=== PATIENT | female | born 1970 | race Caucasian/White ===

== ENCOUNTER 2018-04-22 16:46 | Observation (INO) ==
--- NOTE | 2018-04-22 16:58 | Emergency Department Note ---
Disposition Clinical Impression: Facial paresthesia, Left face and left arm tingling, Facial droop Disposition: Admitted As Inpatient Condition: Good Referrals: Yesenia Nam, DYNAMOMETER TESTER ENGINE [Primary Care Provider] - Forms: ED Satisfaction Letter Time of Disposition: 17:54 Neuro HPI - General Chief Complaint: ED Neuro Symptoms/Deficit Stated Complaint: N/V Facial N/T Time Seen by Provider: 04/22/18 16:51 Source: patient Mode of arrival: ambulatory Limitations: no limitations Nursing Notes Reviewed: Yes Vital Signs Reviewed: Yes - History of Present Illness HPI Narrative: Patient is a 48-year-old female with PMHX of GERD, depression who presents today due to left-sided facial drooping, tingling in her left face and left upper extremity. She states that she started feeling nauseous around 11 and. She had a few episodes of nausea and vomiting. She states that this subsided and she came to work. Around 1 PM, she started to feel "off". She started having sensation of left-sided facial drooping, drooping of her mouth and eye, tingling in her left cheek and left hand. Denies any other numbness, tingling, weakness, chest pain, shortness of breath, fevers, abdominal pain, diarrhea, dysuria, hematuria. Denies any previous history of stroke, OK, any sent placement, CAD. Not on any blood thinners. She says that around 3:04pm, she was standing at the time clock to punch and and says that she lost time. She did not lose consciousness but does not remember a short period of time. When she came to, she was still standing at the time clock and could not remember what she was doing. She has felt mildly confused since. Continues to have facial and arm symptoms listed above. - Related Data Home Medications: Home Medications Medication Instructions Recorded Confirmed Escitalopram [Lexapro] 20 mg PO HS 01/25/17 01/25/17 Estradiol 0.5 mg PO HS 01/25/17 01/25/17 Topiramate [Topamax] 75 mg PO HS 01/25/17 01/25/17 Wellbutrin 02/12/18 Previous Rx's Medication Instructions Recorded Promethazine [Phenergan] 25 mg PO Q6HR PRN #10 tablet 02/12/18 raNITIdine HCl [Zantac] 150 mg PO BID #60 tablet 02/12/18 Allergies/Adverse Reactions: Allergies Allergy/AdvReac Type Severity Reaction Status Date / Time No Known Allergies Allergy Verified 02/12/18 18:26 All systems ED: reviewed and negative except as stated. Constitutional: Denies: fever Cardiovascular: Denies: chest pain Respiratory: Denies: cough, dyspnea Gastrointestinal: Reports: nausea, vomiting. Denies: abdominal pain, diarrhea, constipation Integumentary: Denies: rash Neurological: Reports: paresthesias, other (facial droop on left). Denies: headache, weakness, numbness Past Medical History - Past Medical History Attestation: Yes The following information was validated with the patient. Source: patient Medical history: Reports: non-contributory Surgical history: Reports: cholecystectomy, hysterectomy, KIMMIE/BSO Psychiatric history: Reports: no psych history - Social History Smoking Status: Never smoker Smokeless Tobacco Status: No Alcohol use: Reports: none Drug use: Reports: none Physical Exam - General Limitations: no limitations General appearance: alert, in no apparent distress - Head Head exam: atraumatic, normocephalic, normal inspection - Eye Eye exam: Present: PERRL, EOMI, other (mild droop of left cheek) - ENT ENT exam: normal oropharynx, mucous membranes moist, other (mild droop of left upper lip) - Neck Neck exam: Present: normal inspection, full ROM, trachea midline. Absent: tenderness, meningismus - Chest Chest inspection: Present: normal inspection, symmetric chest wall rise - Respiratory Respiratory exam: Present: normal lung sounds bilaterally - Cardiovascular Cardiovascular exam: Present: regular rate, normal rhythm, normal heart sounds - Abdominal Exam Abdominal exam: Present: soft, Non-Tender. Absent: tenderness, distention, guarding, rebound, rigidity - Extremities Exam Extremities exam: Present: normal inspection, full ROM. Absent: tenderness, pedal edema - Neurological Exam Neurological exam: Present: alert, oriented X3 - Expanded Neurological Exam Patient oriented to: Present: person, place, time Speech: Present: fluid speech Cranial nerves: EOM function (II, III, IV, ): Normal, facial sensation (V): Abnormal Left, facial palsy (VII): Abnormal Left, spinal accessory function (XI) : Normal, tongue deviation (XII): Normal Cerebellar function: finger to nose: Normal Motor strength - LUE: 5/5 Motor strength - RUE: 5/5 Motor strength - LLE: 5/5 Motor strength - RLE: 5/5 Sensory exam upper extremity: light touch: Normal Sensory exam lower extremity: light touch: Normal Coma Scale Eye Opening: Spontaneous Coma Scale Motor Response: Obeys Commands Coma Scale Verbal Response: Oriented Coma Scale Total: 15 - Psychiatric Psychiatric exam: Present: normal affect, normal mood - Skin Skin exam: Present: warm, dry, intact, normal color Course Course Narrative: NIH of 2 due to left cheek decreased sensation, mild droop of left upper lip and left eye, no forehead involvement. Also has sensation of tingling in left hand. 16:58 Stroke alert called. 17:25 [facility] called back, negative head CT. [facility]y has been paged. 17:[address] [facility] [address] Rosales has finished her evaluation. She discussed that she did not think patient was candidate for TPA at this time due to mild symptoms that are slightly improving. Patient agrees with this at this time. She recommended admission to [place] for further workup for stroke. Patient given aspirin and plantar admit for further MRI/MRA of the head and neck. EKG showed no acute ST changes. Pending troponin. Vital Signs Temperature 98.1 F 04/22/18 16:48 Pulse Rate 95 04/22/18 16:48 Respiratory Rate 20 04/22/18 16:48 Blood Pressure 116/79 04/22/18 16:48 O2 Sat by Pulse Oximetry 98 04/22/18 16:48 Temperature 98.1 F 04/22/18 16:58 Pulse Rate 75 04/22/18 17:53 Respiratory Rate 18 04/22/18 17:53 Blood Pressure 109/66 04/22/18 17:15 O2 Sat by Pulse Oximetry 94 04/22/18 17:53 Oxygen Delivery Oxygen Delivery Room Air Neuro Symptoms/Deficit - MDM Narrative Medical decision making narrative: NIH of 2 due to left cheek decreased sensation, mild droop of left upper lip and left eye, no forehead involvement. Also has sensation of tingling in left hand. 16:58 Stroke alert called. 17:25 [facility] called back, negative head CT. [facility] has been paged. 17:[address] [facility] [address] Rosales has finished her evaluation. She discussed that she did not think patient was candidate for TPA at this time due to mild symptoms that are slightly improving. Patient agrees with this at this time. She recommended admission to [place] for further workup for stroke. Patient given aspirin and plantar admit for further MRI/MRA of the head and neck. EKG showed no acute ST changes. Troponin negative. Chest x-ray negative. No major electrolyte abnormality. Head CT 04/22/18 16:58 IMPRESSION: No acute intracranial abnormality. No change from April 2014. Critical results were called by Dr. Leonidas Pisano MD to Marcusschuyler Leblanc on 04/22/2018 at 17:28. D/ / Leonidas Pisano MD / Leonidas Pisano MD Interpreting Provider: Leonidas Pisano MD Chest X-Ray 04/22/18 17:03 IMPRESSION: No acute findings. D/ / Mark Alegria / Mark Alegria Interpreting Provider: Mark Alegria - Medical Records Medical records reviewed: Yes I reviewed the patient's medical records. - Lab Data Lab results reviewed: Yes I reviewed the patient's lab results. Result diagrams: 04/22/18 17:00 04/22/18 17:00 Lab Results 04/22/18 04/22/18 04/22/18 Range/Units 17:00 17:00 17:00 WBC 14.6 H (4.3-11.1) K/mcL RBC 4.80 (3.82-4.97) M/mcL Hgb 15.4 (11.5-15.4) g/dL Hct 45.0 H (35.3-44.9) % MCV 93.8 (83.0-100.0) fL MCH 32.1 (28.0-33.3) pg MCHC 34.2 (31.6-35.5) g/dL RDW 12.6 (11.5-14.5) % Plt Count 255 (140-400) K/mcL MPV 10.8 (9.4-12.4) fL Immature Gran % 0.3 (0-4) % Seg Neutrophils % 86.1 % Lymphocytes % 6.5 % Monocytes % 5.8 % Eosinophils % 1.0 % Basophils % 0.3 % Neutrophils # 12.5 H (1.6-8.9) K/mcL Lymphocytes # 1.0 (0.6-4.6) K/mcL Monocytes # 0.9 (0.0-1.3) K/mcL Eosinophils # 0.1 (0.0-0.6) K/mcL Basophils # 0.1 (0.0-0.2) K/mcL PT 11.4 (9.4-12.1) Seconds INR 1.0 APTT 31.1 (26.0-36.0) Seconds Sodium 137 (136-145) mEq/L Potassium 3.7 (3.5-5.1) mEq/L Chloride 109 H (98-107) mEq/L Carbon Dioxide 20 L (23-29) mEq/L BUN 18 (6-20) mg/dL Creatinine 0.74 (0.60-1.20) mg/dL Est GFR ( Amer) > 60 (> 60) Est GFR (Non-Af Amer) > 60 (> 60) BUN/Creatinine Ratio 24 (6-26) Glucose 139 H (70-105) mg/dL Calculated Osmolality 288 (280-300) Calcium 9.4 (8.6-10.3) mg/dL Troponin I < 0.03 (< 0.04) ng/mL - Radiology Data Radiology results reviewed: Yes I reviewed the patient's radiology results. - EKG Data EKG attestation: Yes I reviewed and interpreted this EKG. EKG results narrative: 04/22/2018 at 17:01. Normal sinus rhythm. Rate 84. WI 186. QRS 128. QTC 416. Normal axis. No acute ST elevation or depression. Bundle-branch block present in lead 3, V1 NIH Stroke Scale - Level of Consciousness LOC: Alert - LOC Questions LOC Questions: Answers both correctly - LOC Commands LOC Commands: Performs both correctly - Best Gaze Best Gaze: Normal - Visual Visual: No visual loss - Facial Palsy Facial Palsy: Minor asymmetry on smiling, flattened nasolabial fold - Motor Arms Motor Arm-Left: No drift for 10 seconds Motor Arm-Right: No drift for 10 seconds - Motor Legs Motor Leg-Left: No drift for 5 seconds Motor Leg-Right: No drift for 5 seconds - Limb Ataxia Limb Ataxia: Absent of affected limb too weak to perform exam - Sensory Sensory: Mild to moderate loss, "not as sharp" (left cheek) - Best Language Best Language: No aphasia - Dysarthria Dysarthria: Normal - Extinction and Inattention Extinction and Inattention: Normal - NIHSS Total Score NIHSS Total Score: 2 TPA Checklist - LKW: 3-4.5 hrs Add. Warnings/Precautions Patient/family understanding: The patient/family members have been counseled and understood the risk, benefit , and alternatives of treatment. Damon - Damon Situation: Demographics, MOA Background: Presenting Complaint, Relevant PMH, Meds, & Allergies Assessment: Vital Signs, Course and respsone to treatment, Exam Concerns, Patient/Family Expectation, Pertinant Lab Results Recommendation: Barrier(s) to disposition, Recommendation based on pending studies, treatments, or consults Damon Report Given to: Dr. Alissa Jose Repor Time: 18:05
[2018-04-22 17:25] LABS: Basophils # 0.1 K/mcL (0.0-0.2); Basophils % 0.3 %; Eosinophils # 0.1 K/mcL (0.0-0.6); Hemoglobin 15.4 g/dL (11.5-15.4); Immature Granulocytes % 0.3 % (0-4); Lymphocytes % 6.5 %; Mean Corpuscular HGB Conc 34.2 g/dL (31.6-35.5); Mean Corpuscular Hemoglobin 32.1 pg (28.0-33.3); Mean Corpuscular Volume 93.8 fL (83.0-100.0); Mean Platelet Volume 10.8 fL (9.4-12.4); Monocytes # 0.9 K/mcL (0.0-1.3); Monocytes % 5.8 %; Neutrophils # 12.5 K/mcL (1.6-8.9); Platelet Count 255 K/mcL (140-400); Red Cell Distribution Width 12.6 % (11.5-14.5); Segmented Neutrophils % 86.1 %
[2018-04-22 17:32] LABS: Prothrombin Time 11.4 Seconds (9.4-12.1)
[2018-04-22 17:35] LABS: Activated Partial Thrombo Time 31.1 Seconds (26.0-36.0)
[2018-04-22 17:51] LABS: BUN/Creatinine Ratio 24 (6-26); Blood Urea Nitrogen 18 mg/dL (6-20); Calcium 9.4 mg/dL (8.6-10.3); Carbon Dioxide 20 mEq/L (23-29); Chloride 109 mEq/L (98-107); Glucose 139 mg/dL (70-105); Osmolality,Calculated 288 (280-300); Potassium 3.7 mEq/L (3.5-5.1); Sodium 137 mEq/L (136-145); eGFR For Non-African Americans > 60 (> 60)
[2018-04-22] MEDS: Aspirin 325 MG TABLET PO ONE (17:51)
[2018-04-22 17:52] LABS: Troponin I < 0.03 ng/mL (< 0.04)
--- NOTE | 2018-04-22 17:53 | Emergency Department Note ---
Disposition Clinical Impression: Facial paresthesia Disposition: Admitted As Inpatient Condition: Fair Referrals: Yesenia Nam CNP [Primary Care Provider] - Forms: ED Satisfaction Letter Neuro HPI - General Chief Complaint: ED Neuro Symptoms/Deficit Stated Complaint: N/V Facial N/T Time Seen by Provider: 04/22/18 16:51 Source: patient Mode of arrival: ambulatory Limitations: no limitations Nursing Notes Reviewed: Yes Vital Signs Reviewed: Yes - Related Data Home Medications: Home Medications Medication Instructions Recorded Confirmed Escitalopram [Lexapro] 20 mg PO HS 01/25/17 01/25/17 Estradiol 0.5 mg PO HS 01/25/17 01/25/17 Topiramate [Topamax] 75 mg PO HS 01/25/17 01/25/17 Wellbutrin 02/12/18 Previous Rx's Medication Instructions Recorded Promethazine [Phenergan] 25 mg PO Q6HR PRN #10 tablet 02/12/18 raNITIdine HCl [Zantac] 150 mg PO BID #60 tablet 02/12/18 Allergies/Adverse Reactions: Allergies Allergy/AdvReac Type Severity Reaction Status Date / Time No Known Allergies Allergy Verified 02/12/18 18:26 Constitutional: Denies: fever Cardiovascular: Denies: chest pain Respiratory: Denies: cough, dyspnea Gastrointestinal: Reports: nausea, vomiting. Denies: abdominal pain, diarrhea, constipation Integumentary: Denies: rash Neurological: Reports: paresthesias, other (facial droop on left). Denies: headache, weakness, numbness Past Medical History - Past Medical History Medical history: Reports: non-contributory Surgical history: Reports: cholecystectomy, hysterectomy, KIMMIE/BSO Psychiatric history: Reports: no psych history - Social History Smoking Status: Never smoker Smokeless Tobacco Status: No Alcohol use: Reports: none Drug use: Reports: none Physical Exam - General Limitations: no limitations General appearance: alert, in no apparent distress Course Vital Signs Temperature 98.1 F 04/22/18 16:48 Pulse Rate 95 04/22/18 16:48 Respiratory Rate 20 04/22/18 16:48 Blood Pressure 116/79 04/22/18 16:48 O2 Sat by Pulse Oximetry 98 04/22/18 16:48 Temperature 98.1 F 04/22/18 16:58 Pulse Rate 78 04/22/18 17:15 Respiratory Rate 18 04/22/18 17:15 Blood Pressure 109/66 04/22/18 17:15 O2 Sat by Pulse Oximetry 93 04/22/18 17:15 Oxygen Delivery Oxygen Delivery Room Air Neuro Symptoms/Deficit - Lab Data Result diagrams: 04/22/18 17:00 Lab Results 04/22/18 04/22/18 Range/Units 17:00 17:00 WBC 14.6 H (4.3-11.1) K/mcL RBC 4.80 (3.82-4.97) M/mcL Hgb 15.4 (11.5-15.4) g/dL Hct 45.0 H (35.3-44.9) % MCV 93.8 (83.0-100.0) fL MCH 32.1 (28.0-33.3) pg MCHC 34.2 (31.6-35.5) g/dL RDW 12.6 (11.5-14.5) % Plt Count 255 (140-400) K/mcL MPV 10.8 (9.4-12.4) fL Immature Gran % 0.3 (0-4) % Seg Neutrophils % 86.1 % Lymphocytes % 6.5 % Monocytes % 5.8 % Eosinophils % 1.0 % Basophils % 0.3 % Neutrophils # 12.5 H (1.6-8.9) K/mcL Lymphocytes # 1.0 (0.6-4.6) K/mcL Monocytes # 0.9 (0.0-1.3) K/mcL Eosinophils # 0.1 (0.0-0.6) K/mcL Basophils # 0.1 (0.0-0.2) K/mcL PT 11.4 (9.4-12.1) Seconds INR 1.0 APTT 31.1 (26.0-36.0) Seconds TPA Checklist - LKW: 3-4.5 hrs Add. Warnings/Precautions Patient/family understanding: The patient/family members have been counseled and understood the risk, benefit , and alternatives of treatment. Attestation Statement - Attestation Attestation: I, Shalom Crowell, examined this patient and my medical decision-making was reviewed with the [employer] TE[employer]ER/PA/Advanced Practice Nurse/Resident Physician. I agree with the documented findings, disposition and treatment plan as described except to the extent set forth below. 48-year-old female presents emergency Department with concerns of numbness and tingling to the left lower face with mild left facial droop. Patient states her last known normal was about 3 hours prior to arrival in the emergency department. On exam she has a mild left facial droop and paresthesias to the left lower face. There is sparing of the forehead noted on exam. She has mild tingling to the left hand but there is no other focal neurologic deficit. Patient denies recent trauma. No recent changes in her medications. We initiated a stroke alert after the initial evaluation. CT of the head was negative for acute fracture or intracranial hemorrhage. Patient was evaluated by [facility] neurology who agreed the patient was not a candidate for TPA. Patient comfortable with the plan for admission to the hospital for further care and evaluation.
[2018-04-22 18:27] LABS: Bilirubin,Urine Negative (Negative); Blood,Urine Negative (Negative); Clarity,Urine Clear (Clear); Color,Urine Yellow (Yellow); Glucose,Urine (UA) Normal (Normal); Ketones,Urine Negative (Negative); Leukocyte Esterase,Urine Negative (Negative); Nitrite,Urine Negative (Negative); PH,Urine 6.5 pH Units (5.0-8.0); Protein,Urine Negative (Neg-Trace); Specific Gravity,Urine 1.025 (1.010-1.025); Urobilinogen,Urine Normal (Normal)
--- NOTE | 2018-04-22 18:44 | Internal Med History&Physical ---
Date of Encounter: 04/22/18 Time of Encounter: 18:42 Internal Medicine - H&P: HPI Chief complaint: left sided facial paresthesia Admitted From: Home Plans for Post Hospital Care: Home History of present illness: Ms. Hubbard is a 48 year old female with history of PTSD presented to the ED with complaint of left-sided paresthesia. 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 She was at her usual state of health the day before admission and worked her shift. She went home and woke up not feeling like herself, she reports confusion and "grogginess". She had one episode of bilious vomiting at home, denies hematemesis. No else in the family is experiencing similar symptoms. At 3 PM she came to work, did not feel like herself soon after she developed numbness and tingling of the left side of her face, and left upper extremity. she denies alleviating or exacerbating factors to her symptoms . she denies loss of function of her extremities / paralysis, head trauma, loss of balance, falls, recent URI, neck stiffness. other than left sided numbness and tingling she complains of foul smelling urine , denies frequeny or Dysuria. He has never had symptoms like this before so she consulted with one of the nurses on the floor and was transported to the emergency department for further evaluation. While in the ED NIH score was 2, stroke alert was activated, CT head did not show any acute intracranial hemorrhage. [facility] was consulted but no TPA was given since her symptoms had improved and nearly resolved. She was endorsed for admission for further evaluation of her symptoms. denies chest pain, fver, chills, heat or cold intolerance. Past Med Surg Social Fam HX - Past Medical History Medical history: non-contributory Psychiatric history: no psych history - Past Surgical History Surgical History: cholecystectomy, hysterectomy, KIMMIE/BSO Additional surgical history: hysterectomy. tonsils. tubal. R CTR. Breast reduction. gallbladder. left knee. left foot - Social History Smoking Status: Never smoker Smokeless Tobacco Status: No Alcohol use: none Drug use: none - Family History Mother Hx Family Cardiac Disorders: Yes Hx Family GI Disorders: Yes Hx Family Endocrine Disorder: Yes Father Living Status: Internal Medicine - H&P: Meds Escitalopram [Lexapro] 20 mg PO HS 01/25/17 [History] Estradiol 0.5 mg PO HS 01/25/17 [History] Topiramate [Topamax] 75 mg PO HS 01/25/17 [History] Promethazine [Phenergan] 25 mg PO Q6HR PRN #10 tablet 02/12/18 [Rx] Wellbutrin 02/12/18 [History] raNITIdine HCl [Zantac] 150 mg PO BID #60 tablet 02/12/18 [Rx] 3 Allergy/AdvReac Type Severity Reaction Status Date / Time No Known Allergies Allergy Verified 02/12/18 18:26 All Systems PM: review of systems was performed and is negative for pertinent findings except as documented above in the HPI. - Constitutional Vitals: Temp Pulse Resp BP Pulse Ox 98 F 75 18 133/83 96 04/22/18 18:25 04/22/18 18:25 04/22/18 18:25 04/22/18 18:25 04/22/18 18:24 - Other Additional findings: General: Patient is alert, oriented, no acute distress, obese Head: atraumatic, normocephalic, Eye: normal appearance, PERRL, no scleral icterus, no conjunctival injection ENT: mucous membranes moist, normal external ear exam Neck: normal inspection, trachea midline, full ROM, no carotid bruits Chest: normal inspection, symmetric chest rise Respiratory: Good respiratory effort. Bilateral breath sounds are clear without wheezing, crackles, or rhonchi. Cardiovascular: Regular rate and rhythm. s1 and s2 No clicks, rubs, gallops, or murmors. Abdomen: Bowel sounds present normoactive x-4 quadrants. Abdomen is soft, nondistended. No guarding or rebound. No organomegaly noted, obese musculoskeletal: Spontaneously moving all extremities. no edema, no calf tenderness Skin: warm, dry, intact. Neuro: Alert and oriented x4. Sensation light touch intact. Cranial nerves 2- 12 is intact. 5/5 strength in all extremity, speech is comprehendible, gait is steady, no pronator drift, Not aphasic,, rapid hand movements intact, finger- to-nose intact, no nystagmus or facial droop Psych: Patient's affect is normal Internal Med - H&P Results - Labs CBC & Chem 7: 04/22/18 17:00 04/22/18 17:00 Labs: Urine 04/22/18 Range/Units 18:15 Urine Color Yellow (Yellow) Urine Clarity Clear (Clear) Urine pH 6.5 (5.0-8.0) pH Units Ur Specific Stephenson 1.025 (1.010-1.025) Urine Protein Negative (Neg-Trace) mg/dL Urine Glucose (UA) Normal (Normal) mg/dL - Assessment and plan (1) Facial paresthesia Current Visit: Yes Status: Acute Assessment and plan: ?TIA R/o stroke NIH 2 on admission- [facility] called No TPA was given ASA 325 mg in the ED ASA 81 mg qday lipitor 80 QhS neurology consult MRI head carotid doppler TTE lipid panel, A1c, TSH follow AM labs UA sent will follow Utox neuro checks as per protocol tele monitoring fall precautions PT/OT gentle hydration with NS at 60 cc per hour (2) PTSD (post-traumatic stress disorder) Current Visit: Yes Status: Acute Assessment and plan: continue home medications if not CI (3) Leukocytosis, unspecified Current Visit: Yes Status: Acute Assessment and plan: has generalized body aches and vomited once at home ? viral gastroenteritis vs reactive from TIA will continue to monitor vitals UA sent will follow CXR - clear vitals stable and afebrile will monitor CBC will consider Abx if she developes fever >100.4 Qualifiers: Leukocytosis type: unspecified Qualified Code(s): D72.829 - Elevated white blood cell count, unspecified (4) DVT prophylaxis Current Visit: No Status: Acute Assessment and plan: heparin 5000 units Q8H SC - Time Spent With Patient Total time spent is greater than 50% in coordination of care (as documented) at patient's floor/unit and/or counseling patient:
[2018-04-22] MEDS: *HR* Heparin 5,000 UNIT/ML VIAL SQ SCH (22:11)
[2018-04-22] MEDS: 0.9 % Sodium Chloride 1,000 ML IVC SCH (22:12)
[2018-04-22] MEDS: Melatonin 3 MG TABLET PO SCH (23:22)
[2018-04-22] MEDS: Acetaminophen 325 MG TABLET PO PRN (23:22)
[2018-04-23 04:39] LABS: Basophils # 0.1 K/mcL (0.0-0.2); Basophils % 0.8 %; Eosinophils # 0.3 K/mcL (0.0-0.6); Eosinophils % 4.3 %; Immature Granulocytes % 0.3 % (0-4); Lymphocytes # 1.9 K/mcL (0.6-4.6); Lymphocytes % 30.8 %; Mean Corpuscular HGB Conc 33.5 g/dL (31.6-35.5); Mean Corpuscular Hemoglobin 31.5 pg (28.0-33.3); Mean Corpuscular Volume 94.1 fL (83.0-100.0); Mean Platelet Volume 11.1 fL (9.4-12.4); Monocytes # 0.5 K/mcL (0.0-1.3); Monocytes % 8.8 %; Neutrophils # 3.3 K/mcL (1.6-8.9); Nucleated Red Blood Cells 0.3 /100 WBC (0); Platelet Count 216 K/mcL (140-400); Red Blood Count 4.25 M/mcL (3.82-4.97); Red Cell Distribution Width 12.7 % (11.5-14.5)
[2018-04-23 04:41] LABS: INR 1.1; Prothrombin Time 12.2 Seconds (9.4-12.1)
[2018-04-23 04:42] LABS: Hemoglobin 13.4 g/dL (11.5-15.4)
[2018-04-23 04:55] LABS: Magnesium 2.1 mg/dL (1.6-2.6); Phosphorous 2.3 mg/dL (2.7-4.5)
[2018-04-23 05:03] LABS: BUN/Creatinine Ratio 23 (6-26); Blood Urea Nitrogen 13 mg/dL (6-20); Calcium 8.9 mg/dL (8.6-10.3); Carbon Dioxide 21 mEq/L (23-29); Chloride 111 mEq/L (98-107); Cholesterol 158 mg/dL (< 200); Glucose 95 mg/dL (70-105); HDL Cholesterol 40 mg/dL (40-59); LDL Cholesterol,Calculated 95 mg/dL (0-99); Osmolality,Calculated 286 (280-300); Potassium 3.4 mEq/L (3.5-5.1); Sodium 138 mEq/L (136-145); Triglycerides 114 mg/dL (< 150); eGFR For Non-African Americans > 60 (> 60)
[2018-04-23 05:11] LABS: Thyroid Stimulating Hormone 0.913 mcIU/mL (0.340-5.600)
[2018-04-23] MEDS: *HR* Heparin 5,000 UNIT/ML VIAL SQ SCH ×3 (05:35→20:48)
[2018-04-23 06:33] LABS: Estimated Average Glucose 105 mg/dl; Hemoglobin A1C 5.3 %
[2018-04-23] MEDS: Aspirin Enteric Coated 81 MG Tablet PO SCH (08:13)
[2018-04-23] MEDS: Acetaminophen 325 MG TABLET PO PRN ×2 (08:13→20:50)
[2018-04-23 08:54] LABS: Amphetamine Screen,Urine Negative ng/mL (Cutoff=1000); Barbiturate Screen,Urine Negative ng/mL (Cutoff=200); Benzodiazepines Screen,Urine Negative ng/mL (Cutoff=200); Cannabinoid Screen,Urine Negative ng/mL (Cutoff = 50); Cocaine Screen,Urine Negative ng/mL (Cutoff= 300); Opiate Screen,Urine Negative ng/mL (Cutoff=300); Phencyclidine Screen,Urine Negative ng/mL (Cutoff=25)
--- NOTE | 2018-04-23 09:51 | Internal Med Progress Note ---
Date of Encounter: 04/23/18 Time of Encounter: 09:47 - Assessment and plan (1) Facial paresthesia Current Visit: Yes Status: Acute Assessment and plan: Patient reports yesterday she had onset of left facial numbness, tingling, drooping Facial drooping has resolved. She still feels her left face is "heavy" Neuro exam nonfocal, nonlateralizing CT head, MRI head negative. Awaiting echocardiogram and bilateral carotid Dopplers Patient is able to ambulate independently. She is tolerating her diet and denies dysphasia Awaiting neuro consult Patient's lipid panel is within normal limits. A1c 5.3 Troponin 0.03 We will continue patient on aspirin, statin (2) Leukocytosis, unspecified Current Visit: Yes Status: Acute Assessment and plan: Unclear why patient had a leukocytosis Predominantly neutrophilic She does not have tachypnea, tachycardia, fever She reports that yesterday she woke up with nausea and had 1 episode of yellow nonbloody vomiting. Reports she ate spaghetti the day before with her family and nobody else is sick. She reports no sick contacts She denies any tick bites Currently leukocytosis resolved after receiving IV fluids. Urinalysis negative Urine tox negative Chest x-ray negative Qualifiers: Leukocytosis type: unspecified Qualified Code(s): D72.829 - Elevated white blood cell count, unspecified (3) DVT prophylaxis Current Visit: Yes Status: Acute Assessment and plan: heparin 5000 units Q8H SC (4) PTSD (post-traumatic stress disorder) Current Visit: Yes Status: Acute Assessment and plan: continue home medications - Time Spent With Patient Total time spent is greater than 50% in coordination of care (as documented) at patient's floor/unit and/or counseling patient: - Subjective Interval history: Patient admitted for left facial numbness, tingling, drooping. She is currently undergoing neurological workup. She reports that the drooping has resolved but she still felt feels a heaviness on the left side of the face. She denies any unilateral weakness, dizziness, blurry vision. She reports a headache that is located bilateral occipital and frontal and throbbing. She is able to ambulate independently. - Constitutional Vitals: Temp Pulse Resp BP Pulse Ox 98.2 F 55 16 102/66 96 04/23/18 06:33 04/23/18 06:33 04/23/18 06:33 04/23/18 06:33 04/23/18 06:33 - Other Additional findings: General: Pleasant without distress HEENT: Head atraumatic, normocephalic, EOMI, PERRL, neck nontender to palpation , absent lymphadenopathy, Moist Mucous Membranes, Heart: Regular rate and rhythm with no murmur Lungs: Clear to auscultation bilaterally Abdomen: Soft nontender, nondistended positive bowel sounds Skin: warm and dry, absent rash Extremities: Absent pedal edema, Neuro: Cranial nerves II through XII intact, UE and LE sensation equal bilaterally, UE and LEstrength 5/5, alert oriented 3, Heel to gabriel intact, finger to nose intact, b/l plantar reflexes downwards Vascular: Pedal and radial pulses 2 out of 4 Internal Medicine: Result - Labs CBC & Chem 7: 04/23/18 03:55 04/23/18 03:55 Labs: Short CBC 04/23/18 Range/Units 03:55 WBC 6.0 D (4.3-11.1) K/mcL Hgb 13.4 D (11.5-15.4) g/dL Hct 40.0 (35.3-44.9) % Plt Count 216 (140-400) K/mcL Neutrophils # 3.3 (1.6-8.9) K/mcL BMP 04/23/18 03:55 Sodium 138 Potassium 3.4 L Chloride 111 H Carbon Dioxide 21 L BUN 13 Creatinine 0.56 L Glucose 95 Calcium 8.9 Urine 04/22/18 Range/Units 18:15 Urine Color Yellow (Yellow) Urine Clarity Clear (Clear) Urine pH 6.5 (5.0-8.0) pH Units Ur Specific [place] 1.025 (1.010-1.025) Urine Protein Negative (Neg-Trace) mg/dL Urine Glucose (UA) Normal (Normal) mg/dL - ABG Interpretation ABG results: PT/INR, D-dimer PT 12.2 Seconds (9.4-12.1) H 04/23/18 03:55 - Impressions Impressions Brain MRI 04/22/18 18:32 IMPRESSION: Unremarkable exam. No acute intracranial abnormality. D/ / Keith Hidalgo MD / Keith Hidalgo MD Interpreting Provider: Keith Hidalgo MD - VTE Documentation of Mechanical Device: Intermittent pneumatic compression device Consult Discharge Plan - Plan Referrals: Yesenia Nam, PRODUCTION STAFF WORKER [Primary Care Provider] -
--- NOTE | 2018-04-23 09:59 | Event Note ---
Date of Encounter: 04/23/18 Time of Encounter: 09:55 Patient was seen and examined. I agree with the progress note as written by the resident physician Patient is starting to feel better. Has a headache. Feels "fullness on left side of the face and around the left eye". Paresthesia is resolved. No weakness. One vomiting episode yesterday at home but none since. The patient was admitted for stroke workup and possible viral gastroenteritis. GEN: NAD CVS: RRR. S1, S2, No m/r/g RESP: CTAB ABD: Soft, NT, ND, +BS EXT: No edema. 2+ DP. No rashes NEURO: Nonfocal f/u on neurology recs CT head and MRI brain unremarkable c/w ASA 81 mg f/u on echo and carotids Seems to have had some dehydrational component and now improved after IV fluids Lipid panel noted A1c noted DVT ppx
[2018-04-23] MEDS ORDERED: Ketorolac 30 MG/ML VIAL IVP ONE (10:49)
[2018-04-23] MEDS ORDERED: Prochlorperazine 10 MG/2 ML VIAL IVP ONE (10:51)
[2018-04-23] MEDS: Melatonin 3 MG TABLET PO SCH (20:48)
[2018-04-24] MEDS: *HR* Heparin 5,000 UNIT/ML VIAL SQ SCH (06:40)
[2018-04-24] MEDS: 0.9 % Sodium Chloride 1,000 ML IVC SCH (06:41)
[2018-04-24] MEDS: Acetaminophen 325 MG TABLET PO PRN (07:51)
[2018-04-24] MEDS: Aspirin Enteric Coated 81 MG Tablet PO SCH (07:51)
--- NOTE | 2018-04-24 09:13 | Internal Med Progress Note ---
Date of Encounter: 04/24/18 Time of Encounter: 08:45 - Assessment and plan (1) Facial paresthesia Current Visit: Yes Status: Resolved Assessment and plan: Likely secondary to new onset migraine, other differentials include tension headache, cluster headache, bells palsy, orbital cellulitis Droop, heaviness, tingling have resolved. Patient still has facial puffiness on the left side, states it is improving. Neuro exam is equal bilaterally with no general or focal deficits. Lipids are WNL, A1c 5.3, troponins negative Head CT negative, MRI head negative, carotid U/S wnl, echo EF is 60% , mild LV diastolic dysfunction and mild mitral regurgitation. Patient independently performs ADLs, tolerates her diet and denies dysphagia. Continue current regimen of asa and statin for management. Neuro is consulted, awaiting recommendations. Check a B12, folate level. - Subjective Interval history: Demi Hubbard is a 48 y/o female with a PMH of GERD, Depression, PTSD who presented to [facility] on 04/22 for Left-sided facial droop, tingling in the Left- face and L-UE, and nausea. Today the patient states that the droop and facial heaviness have resolved. Her headache is resolving today with pain at a 1/10, located in the occiput region. No associated nausea, vomiting, flashers, floaters today. No vision or hearing concerns today. No nausea, vomiting. Left face feels puffy today, improving from yesterday. ROS General: denies fatigue, chills, fevers HEENT: denies hearing or vision changes. denies tinnitus. Denies metallic taste. CV: denies CP, SOB, Palpitations RESP: denies difficulty breathing, coughing, wheezing GI: Denies nausea, vomiting, diarrhea, constipaition, hematochezia, melena : denies hematuria MSK: full ROM Neuro: denies droop, tingling, loss of sensation, tremors. PSYCH: denies anxiety. positive for history of depression, chronic. - Constitutional Vitals: Temp Pulse Resp BP Pulse Ox 98.2 F 61 16 102/64 98 04/24/18 07:24 04/24/18 07:24 04/24/18 07:24 04/24/18 07:24 04/24/18 07:24 General appearance: Present: A&O X 3, pleasant, no acute distress, obese - Head Head exam: Present: atraumatic, normocephalic - Expanded Head Exam Head exam expanded: Absent: abrasion - Eye Eye exam: Present: EOMI, PERRL. Absent: nystagmus Additional comments: No swelling, erythema of eyelids. - Neck Neck exam general surgery: Present: full ROM. Absent: lymphadenopathy - Respiratory Respiratory exam: Present: CTAB. Absent: respiratory distress, wheezes - Cardiovascular Cardiovascular exam: Present: RRR. Absent: gallop, rubs - GI/Abdominal GI/Abdominal exam: Present: normal bowel sounds. Absent: hepatomegaly, rigid, splenomegaly - Extremities Exam Extremities exam: Present: full ROM - Neurological Exam Neurological exam: Present: alert, CN II-XII intact, normal gait, reflexes normal, strengths equal and symetr throughout - Expanded Neurological Exam Cerebellar function: finger to nose: Normal, heel to gabriel: Normal Neuro motor strength exam: LUE: 5, RUE: 5, LLE: 5, RLE: 5 DTR: patellar (L): 2+, patellar (R): 2+ - Psychiatric Psychiatric exam: Present: normal affect, normal mood - Skin Skin exam: Present: normal color Internal Medicine: Result - Labs CBC & Chem 7: 04/23/18 03:55 04/23/18 03:55 - ABG Interpretation ABG results: PT/INR, D-dimer PT 12.2 Seconds (9.4-12.1) H 04/23/18 03:55 - Impressions Impressions Echocardiogram 04/23/18 11:35 Impressions: LVEF 60%. Mild left ventricular diastolic dysfunction. Normal right ventricular structure and function. Mild mitral regurgitation. No pulmonary hypertension. No evidence of PFO with agitated saline contrast. Left Ventricular Wall Motion: Rest Echo Findings All wall segments showed normal motion. Findings: Study Quality * Technically adequate exam. ECG Findings * Normal sinus rhythm. Left Ventricle * LVEF 60%. * Normal LV chamber size, wall thickness and function. * Mild left ventricular diastolic dysfunction. Right Ventricle * Normal right ventricular structure and function. Left Atrium * Normal left atrial size. Right Atrium * Normal right atrial size. Aortic Valve * No aortic regurgitation. * No aortic stenosis. * Aortic valve not well visualized. Mitral Valve * Normal mitral valve structure. * No mitral stenosis. * Mild mitral regurgitation. Tricuspid Valve * Tricuspid valve not well visualized. * Trace tricuspid regurgitation. Pulmonic Valve * Pulmonic valve is not well visualized. * No pulmonic stenosis. * No pulmonic regurgitation. Pulmonary Artery * Pulmonary artery not well visualized. Aorta * Normally sized aortic root. Pericardium * There is no pericardial effusion present. Interatrial Septum * No evidence of PFO with agitated saline contrast. - VTE Documentation of Mechanical Device: Intermittent pneumatic compression device Consult Discharge Plan - Plan Referrals: Yesenia Nam CNP [Primary Care Provider] - 04/27/18 10:30 am
--- NOTE | 2018-04-24 11:09 | Discharge Summary ---
Date of Encounter: 04/24/18 - Discharge Diagnosis (1) Facial paresthesia Status: Resolved - Time Spent with Patient Total time spent providing and/or coordinating discharge services: - Discharge Medications Home Medications: Escitalopram [Lexapro] 20 mg PO HS 01/25/17 [History] Estradiol 0.5 mg PO HS 01/25/17 [History] Topiramate [Topamax] 75 mg PO HS 01/25/17 [History] BuPROPion XL (24 HR) [Wellbutrin XL] 150 mg PO QAM 04/22/18 [History] Melatonin [Melatin] 3 mg PO HS 04/22/18 [History] raNITIdine HCl [Zantac] 150 mg PO BID PRN 04/22/18 [History] Allergies/Adverse Reactions: 3 Allergy/AdvReac Type Severity Reaction Status Date / Time No Known Allergies Allergy Verified 02/12/18 18:26 Date of admission: 04/22/18 18:13 Primary care physician: Yesenia Nam CNP Consults: 04/22/18 18:32 Consult to Neurology [CONS] Routine Consulting Provider: Neu[facility] Reason for Consult: tia Call Completed: No Consult to Award Machine Operator [CONS] Routine Reason for SW Consult: tia - Constitutional Vitals: Temp Pulse Resp BP Pulse Ox 98.2 F 61 16 102/64 98 04/24/18 07:24 04/24/18 07:24 04/24/18 07:24 04/24/18 07:24 04/24/18 07:24 General appearance: Present: A&O X 3, pleasant, no acute distress, obese - Patient Status Condition: Good - Discharge Instructions Follow Up With: Yesenia Nam CNP [Primary Care Provider] - 04/27/18 10:30 am - VTE Documentation of Mechanical Device: Intermittent pneumatic compression device
[2018-04-24 11:13] VITALS: BP 114/64
--- NOTE | 2018-04-24 11:14 | Neurology - Consult Note ---
<William Nassar - Last Filed: 04/24/18 10:57> Date of Encounter: 04/24/18 Time of Encounter: 10:40 Assessment and Plan (1) Left face and left arm tingling Current Visit: Yes Status: Acute Symptoms have mostly resolved. Most likely associated with a migrainous phenomena. Will followup in office in 3-4 weeks and ok to ga Code(s): R20.2 - Paresthesia of skin SNOMED Code(s): 36264785, 455789550, 461449622 (2) Migraine without status migrainosus, not intractable Current Visit: Yes Status: Acute Occipital headache has since resolved. Most likely basilar migrainous phenomena with associated facial and L hand symptoms. She is currently taking toperimate and will continue at ga. Will add 2mg zanaflex at bedtime. Followup in office in 3-4 weeks. Qualifiers: Migraine type: without aura Qualified Code(s): G43.009 - Migraine without aura, not intractable, without status migrainosus Code(s): G43.909 - Migraine, unspecified, not intractable, without status migrainosus SNOMED Code(s): 76605583 History of Present Illness Chief complaint: Neuro consult for facial numbness/tingling HPI: Ms. Hubbard is a 48 year old female with PMH significant for PTSD and depression. Neurology has been consulted for new onset facial numbness/tingling and L hand tingling. She states 2 days ago she was getting ready for work and had 1 episode of bilious vomiting and shortly after started having a headache she describes as "intense, throbbing at the base of skull" without any visual aura. She additionally said she was having diaphoresis and loss of peripheral vision when her DICKENS began. A new feeling of "fullness" started on the L side of her face and when she went to work she told a nurse about her symptoms and was told she was having a L facial droop and taken to the ED. She has never had these symptoms previously. Today, she says her symptoms have improved. She complains of a slight pain in occipital region still but the DICKENS pain has mostly resolved. The pain is increased when looking upwards but side/side neck ROM does not elicit pain. The facial tingling and fullness has mostly resolved with some minor fullness feeling still present. She continues to have the tingling and fullness feeling of her L hand she locates to just her finger tips but not more proximal which is improving. She denied any presyncopal symptoms, chest pain, SOB, hx of migraines, eye pain/pressure, tearing, redness, diplopia, or additional loss of peripheral vision since first incident. Past Med Surg Social Fam HX - Past Medical History Medical history: non-contributory Psychiatric history: PTSD - Past Surgical History Surgical History: cholecystectomy, hysterectomy, orthopedic, other, KIMMIE/BSO Additional surgical history: hysterectomy. tonsils. tubal. R CTR. Breast reduction, bladder mesh. gallbladder. left knee. left foot - Social History Smoking Status: Former smoker Smokeless Tobacco Status: No Alcohol use: none Drug use: none - Family History Mother Hx Family Cardiac Disorders: Yes Hx Family GI Disorders: Yes Hx Family Endocrine Disorder: Yes Father Living Status: Hx Family Neurologic Disorders: Yes (Alzhymers, "mini-strokes") Medications and Allergies Escitalopram [Lexapro] 20 mg PO HS 01/25/17 [History] Estradiol 0.5 mg PO HS 01/25/17 [History] Topiramate [Topamax] 75 mg PO HS 01/25/17 [History] BuPROPion XL (24 HR) [Wellbutrin Xl] 150 mg PO QAM 04/22/18 [History] Melatonin [Melatin] 3 mg PO HS 04/22/18 [History] raNITIdine HCl [Zantac] 150 mg PO BID PRN 04/22/18 [History] Aspirin Enteric Coated [Aspirin EC] 81 mg PO DAILY 30 Days #30 tablet. [Rx] Atorvastatin [Lipitor] 80 mg PO HS #30 tablet 04/24/18 [Rx] Tizanidine HCl [Zanaflex] 2 mg PO HS #30 cap 04/24/18 [Rx] 3 Allergy/AdvReac Type Severity Reaction Status Date / Time No Known Allergies Allergy Verified 02/12/18 18:26 All Systems: The remainder of the systems were reviewed and are negative - Constitutional Constitutional ROS IM: headache(s) - Eyes Eyes: bilateral: loss of peripheral vision (As per HPI) - Neurological Neurological ROS: as per HPI Physical Examination - Vital Signs Vital Signs: Initial Vital Signs Temp Pulse Resp BP Pulse Ox 98.1 F 95 20 116/79 98 04/22/18 16:48 04/22/18 16:48 04/22/18 16:48 04/22/18 16:48 04/22/18 16:48 - Constitutional General appearance: comfortable - Neurologic Sensorimotor examination: intact Motor examination - right side: 01/28: deltoids, biceps, triceps, wrist flexion, wrist extension, mission analyst, hip flexors, tibialis Anterior, quadriceps, toe extension (EHL), plantarflexion Motor examination - left side: 01/28: deltoids, biceps, triceps, wrist flexion, wrist extension, hip flexors, mission analyst, quadriceps, tibialis Anterior, toe extension (EHL), plantarflexion Detailed sensory examination: light touch (Intact bilaterally ), temperature ( Intact bilaterally ), vibration (intact bilaterally ) Mental Status Examination: awake, alert, oriented to person, oriented to place, oriented to time, follows commands appropriately, answers questions appropriately, no aphasia Cranial nerve examination: PERRL, EOMI, visual brown intact, sensory to face intact, no facial asymmetry is present, hearing is intact symmetrically, flexes SCM and trapezius muscles symmetrically with full power, tongue protrudes midline, no atrophy or facial fasiculations present Cerebellar examination: performs finger to nose and heel to gabriel symmetrically without ataxia, no difficulty with rapid alternating movements Results - Laboratory Findings CBC and BMP: 04/23/18 03:55 04/23/18 03:55 Abnormal lab findings: Abnormal lab results Nucleated RBCs/100 WBC 0.3 /100 WBC (0) H 04/23/18 03:55 PT 12.2 Seconds (9.4-12.1) H 04/23/18 03:55 Potassium 3.4 mEq/L (3.5-5.1) L 04/23/18 03:55 Chloride 111 mEq/L (98-107) H 04/23/18 03:55 Carbon Dioxide 21 mEq/L (23-29) L 04/23/18 03:55 Creatinine 0.56 mg/dL (0.60-1.20) L 04/23/18 03:55 POC Glucose 111 mg/dL (70-99) H 04/22/18 16:56 Phosphorus 2.3 mg/dL (2.7-4.5) L 04/23/18 03:55 Consult Discharge Plan - Plan Referrals: Yesenia Nam, SOURCE INSPECTOR [Primary Care Provider] - 04/27/18 10:30 am Prescriptions: Aspirin Enteric Coated [Aspirin EC] 81 mg PO DAILY 30 Days #30 tablet. Atorvastatin [Lipitor] 80 mg PO HS #30 tablet Tizanidine HCl [Zanaflex] 2 mg PO HS #30 cap <Dwight Galarza I - Last Filed: 04/24/18 13:11> Date of Encounter: 04/24/18 Assessment and Plan (1) Left face and left arm tingling Current Visit: Yes Status: Acute Pt was seen and examined, my medical decision was reviewed with the Resident Physician, I agree with the documented findings, disposition and treatment plas as described except to the extent set forth below This 48 years old female who was admitted earlier with this paresthesias of the face along with some tingling in the left arm as well as decreased concentration and some confusion that has been resolved now. She also has a real bad headaches along with that. She denies any history of pre-bad migraine attack but this seems to be a new event. Patient already had a complete workup including MRI of the brain, carotid and echo gram all has been negative. On examination she is alert awake and oriented cranial nerves are all intact motor sensory several testing is all within normal limits. No focal motor deficit on neurological examination. I suspect this patient likely has migrainous phenomenon that causes the symptom and has just transient neurological deficit which all has been resolved without any findings on imaging studies or on the exam. Discussed in detail with the patient explained that she may benefit from preventative medications to make sure that the symptoms would not return suggest using amitriptyline at bedtime or other option will be of muscle relaxant like tizanidine that she could take it on a regular basis. On the other hand for acute migraine attack she may take some NSAIDs on as-needed basis. As her vascular workup is all been negative, no clinical sign and symptoms are left finding to be suggestive of any BAG MENDER infection nor for any seizures I think is a stable is okay to discharge and an follow-up with neurology as an outpatient Dwight Galarza MD History of Present Illness HPI: Ms. Hubbard is a 48 year old female All Systems: The remainder of the systems were reviewed and are negative Physical Examination - Vital Signs Vital Signs: Initial Vital Signs Temp Pulse Resp BP Pulse Ox 98.1 F 95 20 116/79 98 04/22/18 16:48 04/22/18 16:48 04/22/18 16:48 04/22/18 16:48 04/22/18 16:48 Results - Laboratory Findings CBC and BMP: 04/23/18 03:55 04/23/18 03:55 Abnormal lab findings: Abnormal lab results Nucleated RBCs/100 WBC 0.3 /100 WBC (0) H 04/23/18 03:55 PT 12.2 Seconds (9.4-12.1) H 04/23/18 03:55 Potassium 3.4 mEq/L (3.5-5.1) L 04/23/18 03:55 Chloride 111 mEq/L (98-107) H 04/23/18 03:55 Carbon Dioxide 21 mEq/L (23-29) L 04/23/18 03:55 Creatinine 0.56 mg/dL (0.60-1.20) L 04/23/18 03:55 POC Glucose 111 mg/dL (70-99) H 04/22/18 16:56 Phosphorus 2.3 mg/dL (2.7-4.5) L 04/23/18 03:55
--- NOTE | 2018-04-24 11:59 | Discharge Summary ---
<Juana Sheppard M - Last Filed: 04/24/18 15:15> Date of Encounter: 04/24/18 Time of Encounter: 11:57 - Discharge Diagnosis (1) Facial droop Priority: Primary Status: Resolved (2) Facial paresthesia Priority: Secondary Status: Acute Comments: improving (3) Left face and left arm tingling Priority: Secondary Status: Acute Hospital course: Ms. Hubbard is a 48 year old female with history of GERD, depression, and PTSD who presented to [facility] on 04/22 for mild left-sided facial droop, tingling in her left face and left upper extremity. In ER, [facility] was consulted via telemedicine and did not meet criteria to use TPA. Head CT, Chest XRay, and Brain MRI were all normal. Carotid doppler and Echo were wnl. Patient was started on fluids, acetaminophen, asa, atorvastatin, melatonin and heparin for DVT prophylaxis. Labs showed lipid panel wnl, and A1c of 5.3, leukocytosis which resolved, low K of 3.4 for which patient was given 40 mEq of potassium chloride. PT/OT evaluation showed she can perform ADL's independently. Patients symptomology has resolved aside from a sensation of left facial fullness and a mild occipital headache rated a 1/10. Neuro was consulted, and cleared patient for discharge with Rx for home zanaflex with outpatient follow up recommended in 3-4 weeks. Discharge discussed with: patient - Time Spent with Patient Total time spent providing and/or coordinating discharge services: Greater than 30 minutes - Discharge Medications Prescriptions: Aspirin Enteric Coated [Aspirin EC] 81 mg PO DAILY 30 Days #30 tablet. Tizanidine HCl [Zanaflex] 2 mg PO HS #30 cap Home Medications: Escitalopram [Lexapro] 20 mg PO HS 01/25/17 [History] Estradiol 0.5 mg PO HS 01/25/17 [History] Topiramate [Topamax] 75 mg PO HS 01/25/17 [History] BuPROPion XL (24 HR) [Wellbutrin Xl] 150 mg PO QAM 04/22/18 [History] Melatonin [Melatin] 3 mg PO HS 04/22/18 [History] raNITIdine HCl [Zantac] 150 mg PO BID PRN 04/22/18 [History] Aspirin Enteric Coated [Aspirin EC] 81 mg PO DAILY 30 Days #30 tablet. [Rx] Tizanidine HCl [Zanaflex] 2 mg PO HS #30 cap 04/24/18 [Rx] Allergies/Adverse Reactions: 3 Allergy/AdvReac Type Severity Reaction Status Date / Time No Known Allergies Allergy Verified 02/12/18 18:26 Date of admission: 04/22/18 18:13 Primary care physician: Yesenia Nam CNP Consults: 04/22/18 18:32 Consult to Neurology [CONS] Routine Consulting Provider: [facility] Reason for Consult: tia Call Completed: No Consult to Fruit Trimmer [CONS] Routine Reason for SW Consult: tia Discharging clinician: Juana Sheppard Anticipated date of discharge: 04/24/18 - Constitutional Vitals: Temp Pulse Resp BP Pulse Ox 98.3 F 58 16 114/64 97 04/24/18 11:08 04/24/18 11:08 04/24/18 11:08 04/24/18 11:08 04/24/18 11:08 General appearance: Present: A&O X 3, pleasant, no acute distress - Head Head exam: Present: atraumatic, normocephalic - Eye Eye exam: Present: EOMI Pupils: Present: normal accommodation, PERRL - Respiratory Respiratory exam: Present: CTAB. Absent: respiratory distress, rhonchi, stridor , wheezes - Cardiovascular Cardiovascular exam: Present: RRR. Absent: gallop, rubs - Extremities Exam Extremities exam: Present: warm. Absent: normal inspection, pedal edema - Psychiatric Psychiatric exam: Present: normal affect, normal mood. Absent: agitated, anxious - Patient Status Disposition: Home, Self-Care Condition: Good Functional capacity at discharge: independent ambulation Overall status at discharge: patient is back to baseline - Discharge Instructions Instructions: Tizanidine (By mouth), Transient Ischemic Attack (DC) Follow Up With: Yesenia Nam CNP [Primary Care Provider] - 04/27/18 10:30 am - Diet and Activity Activity: resume usual activities as tolerated Diet: regular diet - VTE Documentation of Mechanical Device: Intermittent pneumatic compression device <Jones Varner - Last Filed: 04/24/18 15:30> Date of Encounter: 04/24/18 - Discharge Diagnosis (1) DVT prophylaxis Status: Acute (2) Facial paresthesia Status: Acute (3) PTSD (post-traumatic stress disorder) Status: Acute (4) Leukocytosis, unspecified Status: Acute Qualifiers: Leukocytosis type: unspecified Qualified Code(s): D72.829 - Elevated white blood cell count, unspecified Hospital course: Ms. Hubbard is a 48 year old female - Time Spent with Patient Total time spent providing and/or coordinating discharge services: Date of admission: 04/22/18 18:13 Primary care physician: Yesenia Nam CNP Consults: 04/22/18 18:32 Consult to Neurology [CONS] Routine Consulting Provider: [facility] Reason for Consult: tia Call Completed: No Consult to Fruit Trimmer [CONS] Routine Reason for SW Consult: tia - Constitutional Vitals: Temp Pulse Resp BP Pulse Ox 98.3 F 58 16 114/64 97 04/24/18 11:08 04/24/18 11:08 04/24/18 11:08 04/24/18 11:08 04/24/18 11:08 - Attending Attestation Patient was seen and examined. I agree with the discharge summary as dictated above by the resident physician. Discharge plans and recommendations were made under my direct supervision.
--- NOTE | 2018-04-24 17:36 | Electrocardiograph Report ---
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
[2018-04-24] MEDS ORDERED: tiZANidine 4 MG TABLET PO SCH (21:00)
== END 2018-04-24 15:18 | disposition home or self-care (01) ==
LOC: 2NENU 16:46 → EMEROO 16:46 → 2NENU 19:01
PROVIDERS: ADMIT Internal Medicine; ATTEND Internal Medicine

== ENCOUNTER 2019-05-20 09:54 | Observation (INO) ==
[2019-05-20] MEDS ORDERED: Aspirin 81 MG TAB.CHEW PO ONE (10:03)
--- NOTE | 2019-05-20 10:05 | Emergency Department Note ---
Disposition Clinical Impression: Chest pain Qualifiers: Chest pain type: unspecified Qualified Code(s): R07.9 - Chest pain, unspecified Disposition: Admitted As Inpatient Instructions: Chest Pain (ED) Referrals: Yesenia Nam CNP [Primary Care Provider] - Time of Disposition: 11:54 Chest Pain HPI - General Stated Complaint: chest pain Time Seen by Provider: 05/20/19 10:03 Source: patient Mode of arrival: ambulatory Limitations: no limitations Vital Signs Reviewed: Yes Nursing Notes Reviewed: Yes - History of Present Illness HPI Narrative: Patient is a 49-year-old female past medical history of anxiety/depression, PTSD, obesity presenting due to 1 day history of sudden onset generalized malaise, fatigue, lightheadedness/dizziness, dyspnea with exertion, and left sided chest discomfort under the area of her left breast. 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 Patient has no other concerns or complaints at this time is had no recent illnesses or sick contacts has no history of heart or lung pathology. Upon my initial evaluation, my general impression is that the patient is awake, alert, oriented, engaged to conversation and answering questions appropriately. There are no overt lateralizing signs, the patient is in no acute distress; their skin appears to be normal in color, they are not pale, not cyanotic, and not diaphoretic, they are sitting up in hospital bed interacting appropriately with environment. Pt complaint: chest pain Onset (ago): hour(s) Duration: constant Onset: during exertion Pain Location: left chest Severity: mild Severity scale (1-10): 3 Quality: tightness, heaviness Pain Radiation: none Improves with: nothing Worsens with: nothing Associated symptoms: Reports: dyspnea Treatments prior to arrival chest pain: none - Related Data Home Medications Medication Instructions Recorded Confirmed Escitalopram [Lexapro] 20 mg PO HS 01/25/17 12/02/18 Estradiol 0.5 mg PO HS 01/25/17 12/02/18 Topiramate [Topamax] 75 mg PO HS 01/25/17 12/02/18 BuPROPion XL (24 HR) [Wellbutrin 150 mg PO QAM 04/22/18 12/02/18 Xl] Previous Rx's Medication Instructions Recorded Naproxen 500 mg PO BID #8 tablet 07/13/18 Allergies Allergy/AdvReac Type Severity Reaction Status Date / Time No Known Allergies Allergy Verified 12/02/18 17:18 Review of Systems: *See History of Present Illness for more detail Constitutional: Denies: fever, chills Cardiovascular: Admits: chest pain Respiratory: Admits: dyspnea, denies: cough, hemoptysis Gastrointestinal: Denies: abdominal pain, nausea, vomiting, diarrhea, constipation, hematemesis, melena, hematochezia Genitourinary: Denies: hematuria Musculoskeletal: Denies: back pain, neck pain Neurological: Admits: weakness, lightheadedness/dizziness, denies: Headaches, numbness, paresthesias, difficulty with ambulation. Endocrine: Admits: fatigue All systems ED: reviewed and negative except as stated. Review of Systems: As Per HPI Chest Pain PMH - Past Medical History Medical history: Reports: TIA Surgical history: Reports: cholecystectomy, hysterectomy, orthopedic, other, KIMMIE/BSO Psychiatric history: Reports: PTSD CLINICAL TECH history: Reports: bilateral tubal ligation - Social History Smoking Status: Never smoker Alcohol use: Reports: none Drug use: Reports: none Physical Exam Constitutional: No acute distress, [id number], engaged to conversation, speech is fluid, answers questions appropriately Neuro: GCS 15, no overt focal neurological deficits Head: Atraumatic, normocephalic Eyes: Pupils equal, round and reactive to light, no scleral icterus, no conjunctival injection Neck: Trachea midline without deviation. Anterior neck is supple without swelling. *Chest: Symmetric chest wall rise *Heart: Cardiac rhythm and rate are regular with S1 and S2 , no S3 or S4 appreciated, no murmurs, gallops, rubs, or clicks. *Lungs: Lungs are clear to auscultation bilaterally, without accessory muscle use or prolonged expiratory phase. No wheezes, rhonchi or stridor appreciated. Abdomen: Abdomen is flat, soft to palpation, normal bowel sounds. No abdominal bruit auscultated. Non-distended, non-rigid, no organomegaly, no ascites appreciated. No pulsatile mass, no tenderness or guarding to palpation in all four quadrants, no rebound Extremities: Normal capillary refill without evidence of pedal edema, joint swelling or erythema. Pulses/motor intact in all 4 extremities. Psychiatric exam: Patient displays a normal affect and mood for the environment. No overt signs of hallucination. Integumentary: warm, dry, intact, normal color. No rash, cyanosis, diaphoresis, erythema, or pallor - General Limitations: no limitations General appearance: alert, in no apparent distress Course Course Narrative: Patient given 324 mg of aspirin here in the ED, basic labs, urinalysis/urine test, EKG/old EKG, chest x-ray, nitroglycerin for the management of her symptoms. Vital Signs Temperature 98.0 F 05/20/19 09:58 Pulse Rate 65 05/20/19 09:58 Respiratory Rate 18 05/20/19 09:58 Blood Pressure 136/68 05/20/19 09:58 O2 Sat by Pulse Oximetry 95 05/20/19 09:58 Temperature 98.0 F 05/20/19 09:58 Pulse Rate 69 05/20/19 10:48 Respiratory Rate 18 05/20/19 10:48 Blood Pressure 138/76 05/20/19 10:48 O2 Sat by Pulse Oximetry 95 05/20/19 10:48 Oxygen Delivery Oxygen Delivery Room Air Chest Pain - MDM Narrative Medical decision making narrative: The patients EKG, imaging, and laboratory results show no acute pathology . However the patient's heart score is 4 at this time she has had complete resolution of her symptoms with nitroglycerin here in the ED. She will require admission to the hospital for chest pain/ACS rule out with cardiology consult for possible echocardiogram/stress testing and possible cardiac catheterization. Evaluation results were discussed with the patient at bedside. Patient was given time to ask questions and state concerns. The patient states that they have had significant relief of their symptoms with our management here in the ED. The patient will be admitted to the hospitalist medicine service for further evaluation and management of chest pain/ACS rule out. . The patient verbalizes their understanding and agreement with this plan and is hemodynamically stable at the time of admission. - Lab Data Lab results reviewed: Yes I reviewed the patient's lab results. Result diagrams: 05/20/19 10:20 05/20/19 10:20 Lab Results 05/20/19 05/20/19 Range/Units 10:20 10:20 WBC 6.7 (4.3-11.1) K/mcL RBC 4.60 (3.82-4.97) M/mcL Hgb 14.6 (11.5-15.4) g/dL Hct 43.2 (35.3-44.9) % MCV 93.9 (83.0-100.0) fL MCH 31.7 (28.0-33.3) pg MCHC 33.8 (31.6-35.5) g/dL RDW 12.7 (11.5-14.5) % Plt Count 284 (140-400) K/mcL MPV 11.0 (9.4-12.4) fL Immature Gran % 0.2 (0-4) % Seg Neutrophils % 60.8 % Lymphocytes % 23.3 % Monocytes % 10.8 % Eosinophils % 3.5 % Basophils % 1.4 % Neutrophils # 4.1 (1.6-8.9) K/mcL Lymphocytes # 1.6 (0.6-4.6) K/mcL Monocytes # 0.7 (0.0-1.3) K/mcL Eosinophils # 0.2 (0.0-0.6) K/mcL Basophils # 0.1 (0.0-0.2) K/mcL Sodium 139 (136-145) mEq/L Potassium 4.1 (3.5-5.1) mEq/L Chloride 107 (98-107) mEq/L Carbon Dioxide 22 L (23-29) mEq/L BUN 24 H (6-20) mg/dL Creatinine 0.61 (0.60-1.20) mg/dL Est GFR ( Amer) > 60 (> 60) Est GFR (Non-Af Amer) > 60 (> 60) BUN/Creatinine Ratio 39 H (6-26) Glucose 105 (70-105) mg/dL Calculated Osmolality 292 (280-300) Calcium 9.3 (8.6-10.3) mg/dL Troponin I < 0.03 (< 0.04) ng/mL - Radiology Data Radiology results reviewed: Yes I reviewed the patient's radiology results. Chest X-Ray 05/20/19 10:03 IMPRESSION: Hypoinflated lungs. No acute cardiopulmonary abnormality. D/ / Shahrzad Thomas MD / Shahrzad Thomas MD Interpreting Provider: Shahrzad Thomas MD - EKG Data EKG attestation: Yes I reviewed and interpreted this EKG. EKG results narrative: The patients EKG shows a sinus rhythm at a computer analyzed rate of 68 beats per minute, AK interval of 185 milliseconds, a QRS duration of 99 milliseconds, a QT/QTc interval of 407 / 433 milliseconds respectively. There are no significant ST segment elevations, depressions, pathologic Q waves, abnormal T- wave inversions are noted in the far left lateral leads. There are no signs of acute ischemic change. This EKG that was performed today is generally consistent in morphology with prior EKG that was performed on October 24, 2018. Heart Score - Score History: Moderately Suspicious EKG: Non Specific repolarisation Disturbance Age: 45-65 Risk Factors: 1-2 risk factors Troponin: Less than normal limit HEART Score Total: 4 Attestation Statement - Attestation Attestation: Patient was seen with resident physician. I reviewed the history, physical, assessment and plan, and agree with the findings. I also personally evaluated this patient and had [id number] time with this patient. 49-year-old female presents emergency Department chief complaint of chest pain. Patient states she started with chest pain in the anterior chest described as a pressure sensation with radiation through to the back since earlier today. Unclear what the total duration time is but she said initially when he came on she was very very diaphoretic. Patient states she sweated through all her) she said the sweating stopped she still feels a chest pressure in the midsternal area. She has no cardiac disease. No significant pulmonary disease but was concerned enough to come in. No nausea or vomiting. Denies other complaints. Review of systems as above remainder negative. Physical exam vital signs are stable. ENT is unremarkable. Heart regular rhythm and rate. Lungs clear. Abdomen is soft and nontender. Extremities unremarkable. Neurologically intact. Skin no rashes. Psych normal. ED course. We will do full cardiac workup. EKG shows no acute ischemic changes. Patient was also given aspirin and nitroglycerin. Based on the workup findings will determine the disposition, but I think admission can be argued because of the patient's age and symptoms. Hemodynamically she was stable throughout her stay. Patient's initial troponin was negative. Workup was largely unremarkable. Patient's pain was improved with nitroglycerin. We spoke with the hospitalist service agreed to admit the patient for chest pain. Agree with resident physician assessment and plan. ED procedures. I reviewed the patient's EKG as well as the resident physician interpretation and I agree with the findings.
[2019-05-20] MEDS: Nitroglycerin 0.4 MG TAB.SUBL SL SCH ×2 (10:32→16:26)
[2019-05-20 10:49] LABS: Basophils # 0.1 K/mcL (0.0-0.2); Basophils % 1.4 %; Eosinophils # 0.2 K/mcL (0.0-0.6); Eosinophils % 3.5 %; Hematocrit 43.2 % (35.3-44.9); Hemoglobin 14.6 g/dL (11.5-15.4); Immature Granulocytes % 0.2 % (0-4); Lymphocytes # 1.6 K/mcL (0.6-4.6); Lymphocytes % 23.3 %; Mean Corpuscular HGB Conc 33.8 g/dL (31.6-35.5); Mean Corpuscular Hemoglobin 31.7 pg (28.0-33.3); Mean Corpuscular Volume 93.9 fL (83.0-100.0); Monocytes # 0.7 K/mcL (0.0-1.3); Monocytes % 10.8 %; Neutrophils # 4.1 K/mcL (1.6-8.9); Platelet Count 284 K/mcL (140-400); Red Cell Distribution Width 12.7 % (11.5-14.5); Segmented Neutrophils % 60.8 %; White Blood Count 6.7 K/mcL (4.3-11.1)
[2019-05-20 10:54] LABS: BUN/Creatinine Ratio 39 (6-26); Blood Urea Nitrogen 24 mg/dL (6-20); Calcium 9.3 mg/dL (8.6-10.3); Carbon Dioxide 22 mEq/L (23-29); Chloride 107 mEq/L (98-107); Glucose 105 mg/dL (70-105); Osmolality,Calculated 292 (280-300); Potassium 4.1 mEq/L (3.5-5.1); Sodium 139 mEq/L (136-145); Troponin I < 0.03 ng/mL (< 0.04); eGFR For African Americans > 60 (> 60); eGFR For Non-African Americans > 60 (> 60)
[2019-05-20 11:53] LABS: Bilirubin,Urine Negative (Negative); Blood,Urine Negative (Negative); Clarity,Urine Clear (Clear); Color,Urine Yellow (Yellow); Glucose,Urine (UA) Normal (Normal); Ketones,Urine Negative (Negative); Leukocyte Esterase,Urine Negative (Negative); Nitrite,Urine Negative (Negative); PH,Urine 5.5 pH Units (5.0-8.0); Protein,Urine Negative (Neg-Trace); Specific Gravity,Urine > 1.030 (1.010-1.025); Urobilinogen,Urine Normal (Normal)
[2019-05-20] MEDS ORDERED: traMADol 50 MG TABLET PO PRN (13:28)
[2019-05-20] MEDS ORDERED: Naloxone 0.4 MG/ML INJ IVP PRN (13:28)
[2019-05-20] MEDS ORDERED: Ondansetron ODT 4 MG TAB.RAPDIS SL PRN (13:28)
[2019-05-20] MEDS ORDERED: Nitroglycerin 0.4 MG TAB.SUBL SL PRN (13:30)
--- NOTE | 2019-05-20 14:01 | Internal Med History&Physical ---
Date of Encounter: 05/20/19 Time of Encounter: 13:56 Internal Medicine - H&P: HPI Chief complaint: chest pain Admitted From: Home Plans for Post Hospital Care: Home History of present illness: Ms. Hubbard is a 49 year old female PMH of Anxiety, PTSD. patient presented to the ED due to chest pain pain. Reported she came to work today feeling well, but as the day progressed she started feeling left sided, under her left breath, chest pressure, associated with diaphoresis, mild shortness of breath with exertion and generalized weakness. Reported her symptoms lasted >1 hour and were alleviated by some nitroglycerin she got in the ED. denies nausea, vomiting or radiation of her chest discomfort. Denies similar symptoms in the past. Reported GERD like symptoms. Started she has been waking up with the sensation she is choking. Denies orthopnea, PND, edema of the lower ext or weight changes. Denies lifting heavy boxes or trauma to her chest. Denies fever/chills or sick contacts. Past Med Surg Social Fam HX - Past Medical History Medical history: TIA, other Additional medical history: PTSD anxiety Psychiatric history: PTSD - Past Surgical History Surgical History: cholecystectomy, hysterectomy, orthopedic, other, KIMMIE/BSO Additional surgical history: hysterectomy. tonsils. tubal. R CTR. Breast reduction, bladder mesh. gallbladder. left knee. left foot - Social History Smoking Status: Never smoker Smokeless Tobacco Status: No Alcohol use: none Drug use: none - Family History Mother Hx Family Cardiac Disorders: Yes Hx Family GI Disorders: Yes Hx Family Endocrine Disorder: Yes Father Living Status: Hx Family Neurologic Disorders: Yes (Alzhycarmen, "mini-strokes") Internal Medicine - H&P: Meds Escitalopram [Lexapro] 20 mg PO HS 01/25/17 [History] Estradiol 0.5 mg PO HS 01/25/17 [History] Topiramate [Topamax] 75 mg PO HS 01/25/17 [History] Allergy/AdvReac Type Severity Reaction Status Date / Time No Known Allergies Allergy Verified 12/02/18 17:18 All Systems PM: A 10-system review of systems was performed and is negative for pertinent findings except as documented above in the HPI. - Constitutional Constitutional: weakness, no chills, no fever(s) - EENT Eyes: no blurry vision Nose, mouth and throat: no dental pain - Cardiovascular Cardiovascular ROS IM: chest pain, diaphoresis, no claudication, no dyspnea, no dyspnea on exertion, no edema, no irregular heart rhythm, no lightheadedness, no orthopnea, no palpitations, no paroxysmal nocturnal dyspnea - Respiratory Respiratory: no cough, no wheezing, no excessive phlegm production - Gastrointestinal Gastrointestinal: no abdominal pain, no nausea, no vomiting - Genitourinary Genitourinary: no dysuria, no urinary frequency - Musculoskeletal Musculoskeletal ROS IM: no atrophy - Integumentary Integumentary IM: no erythema - Neurological Neurological ROS: no frequent falls - Psychiatric Psychiatric: no anxiety, no irritability - Endocrine Endocrine IM: no cold intolerance, no excessive sweating, no polydipsia - Hematologic/Lymphatic Hematologic/Lymphatic: no lymphadenopathy - Allergic/Immunologic Allergic/Immunologic: no GI upset with certain foods - Constitutional Vitals: Temp Pulse Resp BP Pulse Ox 98.0 F 81 14 115/79 97 05/20/19 09:58 05/20/19 13:26 05/20/19 13:26 05/20/19 13:26 05/20/19 13:26 Exam: Vitals: reviewed General: Alert and oriented x4. In mild distress due to chest discomfort Skin: Normal color, no rash, no lesions. HEENT: EOM, pupils equal, round and reactive. Cardiovascular: RRR, normal S1 & S2, no rubs, murmurs or gallops. Lungs: CTA b/l, no wheezes or crackles. Abdomen: Soft, non-tender, no rigidity. Extremities: No deformity, no edema or tenderness, no joint swelling or clubbing. Neurological: Normal cognition and motor skills. Rest of the physical exam is non contributory Internal Med - H&P Results - Labs CBC & Chem 7: 05/20/19 10:20 05/20/19 10:20 Labs: Short CBC 05/20/19 Range/Units 10:20 WBC 6.7 (4.3-11.1) K/mcL Hgb 14.6 (11.5-15.4) g/dL Hct 43.2 (35.3-44.9) % Plt Count 284 (140-400) K/mcL Neutrophils # 4.1 (1.6-8.9) K/mcL BMP 05/20/19 10:20 Sodium 139 Potassium 4.1 Chloride 107 Carbon Dioxide 22 L BUN 24 H Creatinine 0.61 Glucose 105 Calcium 9.3 Cardiac Enzymes 05/20/19 Range/Units 10:20 Troponin I < 0.03 (< 0.04) ng/mL Urine 05/20/19 Range/Units 11:11 Urine Color Yellow (Yellow) Urine Clarity Clear (Clear) Urine pH 5.5 (5.0-8.0) pH Units Ur Specific [place] > 1.030 H (1.010-1.025) Urine Protein Negative (Neg-Trace) mg/dL Urine Glucose (UA) Normal (Normal) mg/dL - Impressions ITS Impressions Chest X-Ray 05/20/19 10:03 IMPRESSION: Hypoinflated lungs. No acute cardiopulmonary abnormality. D/ / Shahrzad Thomas MD / Shahrzad Thomas MD Interpreting Provider: Shahrzad Thomas MD - Diagnostic Studies Chest x-ray Status: image reviewed by me (no acute findigs ) - Assessment and Plan (1) Chest pain Current Visit: Yes Status: Acute Assessment and plan: patient with presenting with atypical chest pain. 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 - Time Spent With Patient Total time spent is greater than 50% in coordination of care (as documented) at patient's floor/unit and/or counseling patient: Greater than 35 minutes (45)
[2019-05-20] MEDS: *HR* Heparin 5,000 UNIT/ML VIAL SQ SCH ×2 (15:18→20:37)
[2019-05-20 17:21] LABS: Adenovirus Not Detected (Not Detect); Bordetella Pertussis Not Detected (Not Detect); Chlamydophila pneumoniae Not Detected (Not Detect); Coronavirus 229E Not Detected (Not Detect); Coronavirus HKU1 Not Detected (Not Detect); Coronavirus NL63 Not Detected (Not Detect); Coronavirus OC43 Not Detected (Not Detect); Human Metapneumovirus Not Detected (Not Detect); Human Rhinovirus/Enterovirus DETECTED (Not Detect); Influenza A Subtype 2009 H1 Not Detected (Not Detect); Influenza A Untypeable Not Detected (Not Detect); Influenza B Not Detected (Not Detect); Mycoplasma pneumoniae Not Detected (Not Detect); Parainfluenza Virus 1 Not Detected (Not Detect); Parainfluenza Virus 2 Not Detected (Not Detect); Parainfluenza Virus 3 Not Detected (Not Detect); Parainfluenza Virus 4 Not Detected (Not Detect); Respiratory Syncytial Virus Not Detected (Not Detect)
[2019-05-20 17:44] LABS: Amphetamine Screen,Urine Negative ng/mL (Cutoff=1000); Barbiturate Screen,Urine Negative ng/mL (Cutoff=200); Benzodiazepines Screen,Urine Negative ng/mL (Cutoff=200); Cannabinoid Screen,Urine Negative ng/mL (Cutoff = 50); Cocaine Screen,Urine Negative ng/mL (Cutoff= 300); Opiate Screen,Urine Negative ng/mL (Cutoff=300); Phencyclidine Screen,Urine Negative ng/mL (Cutoff=25)
[2019-05-20] MEDS: Topiramate 25 MG TABLET PO SCH (19:35)
[2019-05-21] MEDS: Acetaminophen 325 MG TABLET PO PRN ×3 (00:06→20:26)
[2019-05-21 03:25] LABS: Alanine Aminotransferase 21 Units/L (7-52); Albumin 3.6 g/dL (3.5-5.7); Albumin/Globulin Ratio 1.6 (1.1-2.2); Alkaline Phosphatase 59 Units/L (34-104); Aspartate Amino Transferase 23 Units/L (13-39); BUN/Creatinine Ratio 29 (6-26); Bilirubin,Total 0.3 mg/dL (0.3-1.0); Blood Urea Nitrogen 18 mg/dL (6-20); Calcium 8.6 mg/dL (8.6-10.3); Carbon Dioxide 16 mEq/L (23-29); Chloride 111 mEq/L (98-107); Chol/HDL Ratio 4.1 (0-4.9); Cholesterol 147 mg/dL (< 200); Globulin 2.3 g/dL (2.4-3.5); Glucose 104 mg/dL (70-105); HDL Cholesterol 36 mg/dL (40-59); LDL Cholesterol,Calculated 91 mg/dL (0-99); Magnesium 2.1 mg/dL (1.6-2.6); Osmolality,Calculated 288 (280-300); Phosphorous 3.8 mg/dL (2.7-4.5); Potassium 4.6 mEq/L (3.5-5.1); Sodium 138 mEq/L (136-145); Total Protein 5.9 g/dL (6.4-8.9); Triglycerides 100 mg/dL (< 150); eGFR For African Americans > 60 (> 60); eGFR For Non-African Americans > 60 (> 60)
[2019-05-21 04:37] LABS: Prothrombin Time 11.1 Seconds (9.4-12.1)
[2019-05-21 04:40] LABS: Activated Partial Thrombo Time 30.6 Seconds (26.0-36.0)
[2019-05-21] MEDS: *HR* Heparin 5,000 UNIT/ML VIAL SQ SCH ×3 (06:02→20:27)
[2019-05-21] MEDS ORDERED: Regadenoson 0.4 MG/5 ML SYRINGE IVP ONE (07:37)
[2019-05-21] MEDS ORDERED: Lidocaine -MPF 1% 5 ML AMPUL INFILT ONE (07:54)
[2019-05-21] MEDS: Aspirin Enteric Coated 81 MG Tablet PO SCH (09:33)
--- NOTE | 2019-05-21 14:52 | Internal Med Progress Note ---
Hospitalist Progress Note - Encounter Date of Encounter: 05/21/19 Time of Encounter: 14:49 - Subjective Interval History: I have seen and evaluated the patient at bedside. Patient reported the chest discomfort which brought her to the ED has resolved. denies chest pain, nausea, vomiting, but reported GERD like symptoms while sleeping/waking up. - Exam Vitals: Temp Pulse Resp BP Pulse Ox 98.2 F 68 16 101/68 96 05/21/19 11:48 05/21/19 11:48 05/21/19 11:48 05/21/19 11:48 05/21/19 11:48 Exam: Vitals: reviewed General: Alert and oriented x4. In no distress Cardiovascular: RRR, normal S1 & S2, no rubs, murmurs or gallops. Lungs: CTA b/l, no wheezes or crackles. Abdomen: Soft, non-tender, no rigidity. NABS in all 4 quadrants Extremities: No edema Neurological: No focal neurological deficits Rest of the physical exam is non contributory - Assessment and Plan (1) Chest pain Current Visit: Yes Status: Resolved Assessment and Plan: patient to remain in the hospital scheduled for a 2 days stress test. c/w aspirin 81mg/PO daily. (2) PTSD (post-traumatic stress disorder) Current Visit: No Status: Acute Assessment and Plan: with anxiety. continue topiromate, and escitalopram. (3) GERD (gastroesophageal reflux disease) Current Visit: Yes Status: Chronic Assessment and Plan: patient is on PPIs and anti-emetics. DVT Prophylaxis: On heparin subq. - Summary of Assessment and Plan Summary of Assessment and Plan: patient to remain in the hospital scheduled for the second part of a stress test tomorrow morning. - Time Spent with Patient Total time spent is greater than 50% in coordination of care (as documented) at patient's floor/unit and/or counseling patient: Greater than 35 minutes (40) Plan of Care Discussed with: patient (and the nurse.) Internal Medicine: Result - Labs CBC & Chem 7: 05/20/19 10:20 05/21/19 01:51 Labs: BMP 05/21/19 01:51 Sodium 138 Potassium 4.6 Chloride 111 H Carbon Dioxide 16 L BUN 18 Creatinine 0.62 Glucose 104 Calcium 8.6 Cardiac Enzymes 05/20/19 05/21/19 Range/Units 19:53 01:51 Troponin I < 0.03 < 0.03 (< 0.04) ng/mL Liver Function 05/21/19 Range/Units 01:51 Total Bilirubin 0.3 (0.3-1.0) mg/dL AST 23 (13-39) Units/L ALT 21 (7-52) Units/L Alkaline Phosphatase 59 (34-104) Units/L Albumin 3.6 (3.5-5.7) g/dL - ABG Interpretation ABG results: PT/INR, D-dimer PT 11.1 Seconds (9.4-12.1) 05/21/19 03:48 - Impressions Impressions Echocardiogram 05/21/19 13:31 Impressions: LVEF 60-65%. Normal LV chamber size, wall thickness and function. Normal left ventricular diastolic function. Normal right ventricular structure and function. No evidence of a PFO with agitated saline contrast. No evidence of pulmonary hypertension. No significant valvular dysfunction. Left Ventricular Wall Motion: Rest Echo Findings All wall segments showed normal motion. Findings: Study Quality * Technically adequate exam. ECG Findings * Normal sinus rhythm. Left Ventricle * LVEF 60-65%. * Normal LV chamber size, wall thickness and function. * Normal left ventricular diastolic function. Right Ventricle * Normal right ventricular structure and function. Left Atrium * Normal left atrial size. Right Atrium * Normal right atrial size. Interatrial Septum * No evidence of a PFO with agitated saline contrast. Aortic Valve * Aortic valve not well visualized. * No aortic regurgitation. * No aortic stenosis. Mitral Valve * Normal mitral valve structure and function. * No mitral regurgitation. * No mitral stenosis. Tricuspid Valve * Normal tricuspid valve structure and function. * Trace tricuspid regurgitation. * No evidence of pulmonary hypertension. Pulmonic Valve * Pulmonic valve not well visualized. * No pulmonic regurgitation. Aorta * Normally sized aortic root. Pericardium * The pericardium appears normal. IVC * Normal IVC dimensions and inspiratory collapse. Pulmonary Artery * Normal visualized portions of the main pulmonary artery. Consult Discharge Plan - Plan (1) Chest pain Qualifiers: Chest pain type: unspecified Qualified Code(s): R07.9 - Chest pain, unspecified (3) GERD (gastroesophageal reflux disease) Qualifiers: Esophagitis presence: esophagitis presence not specified Qualified Code(s): K21.9 - Gastro-esophageal reflux disease without esophagitis
[2019-05-21] MEDS: Topiramate 25 MG TABLET PO SCH (20:26)
--- NOTE | 2019-05-22 00:15 | Electrocardiograph Report ---
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
[2019-05-22] MEDS: *HR* Heparin 5,000 UNIT/ML VIAL SQ SCH (06:14)
[2019-05-22] MEDS: Aspirin Enteric Coated 81 MG Tablet PO SCH (08:16)
[2019-05-22 08:33] VITALS: BP 94/58
--- NOTE | 2019-05-22 09:36 | Discharge Summary ---
Date of Encounter: 05/22/19 Time of Encounter: 09:32 - Discharge Diagnosis (1) Chest pain Priority: Primary Status: Resolved Qualifiers: Chest pain type: unspecified Qualified Code(s): R07.9 - Chest pain, unspecified (2) PTSD (post-traumatic stress disorder) Priority: Secondary Status: Chronic (3) GERD (gastroesophageal reflux disease) Priority: Secondary Status: Chronic Qualifiers: Esophagitis presence: esophagitis presence not specified Qualified Code(s): K21.9 - Gastro-esophageal reflux disease without esophagitis (4) Viral upper respiratory illness Priority: Secondary Status: Acute Hospital course: Ms. Hubbard is a 49 year old female PMH of Anxiety, PTSD. patient presented to the ED due to chest pain pain, generalized weakness, associated with diaphoresis. Patient admitted to the hospital due to chest pain r/o. Patient also found to have and upper respiratory infection with positive rhino/entero virus on serology. TTE done: LVEF 60-65%. Normal LV chamber size, wall thickness and function. Normal left ventricular diastolic function. Normal right ventricular structure and function. No evidence of pulmonary hypertension. No significant valvular dysfunction. Stress test done: patient's acute symptoms on presentation have resolved and patient is clinically stable to be discharged home. Recommended outpatient GI follow up for possible EGD and to discuss with her PCP referral for a sleep study. - Time Spent with Patient Total time spent providing and/or coordinating discharge services: Time spent: Greater than 30 minutes (35) - Discharge Medications Prescriptions: New Omeprazole [PriLOSEC] 40 mg PO DAILY@0630 30 Days #30 capsule. Continued Escitalopram [Lexapro] 20 mg PO HS Topiramate [Topamax] 75 mg PO HS ARIPiprazole [Abilify] 2 mg PO HS Buspirone HCl [Buspar] 15 mg PO HS Estradiol 0.25 mg PO DAILY Home Medications: Escitalopram [Lexapro] 20 mg PO HS 01/25/17 [History] Topiramate [Topamax] 75 mg PO HS 01/25/17 [History] ARIPiprazole [Abilify] 2 mg PO HS 05/20/19 [History] Buspirone HCl [Buspar] 15 mg PO HS 05/20/19 [History] Estradiol 0.25 mg PO DAILY 05/20/19 [History] Omeprazole [PriLOSEC] 40 mg PO DAILY@0630 30 Days #30 capsule. 05/22/19 [Rx] Allergies/Adverse Reactions: Allergy/AdvReac Type Severity Reaction Status Date / Time No Known Allergies Allergy Verified 12/02/18 17:18 Date of admission: 05/20/19 14:10 Primary care physician: Yesenia Nam CNP Consults: 05/21/19 07:54 Consult to Invasive Line Access Team [CONS] Routine Reason for Consult: Picc Line Insertion Line Type: EPIV Consult to Invasive Line Access Team [CONS] Stat Reason for Consult: Poor Access Line Type: EPIV - Constitutional Vitals: Temp Pulse Resp BP Pulse Ox 97.7 F 64 64 94/58 95 05/22/19 08:28 05/22/19 08:28 05/22/19 08:28 05/22/19 08:28 05/22/19 08:28 Exam: Vitals: reviewed General: Alert and oriented x4. In no distress Cardiovascular: RRR, normal S1 & S2, no rubs, murmurs or gallops. Lungs: CTA b/l, no wheezes or crackles. Abdomen: Soft, non-tender, no rigidity. NABS in all 4 quadrants Extremities: No edema Neurological: No focal neurological deficits Rest of the physical exam is non contributory - Patient Status Disposition: Home, Self-Care Condition: Good Functional capacity at discharge: independent ambulation Overall status at discharge: patient is back to baseline - Discharge Instructions Instructions: Chest Pain (DC) Follow Up With: Ama Husain MD [Partnered Physician] - 06/18/19 4:20 pm Yesenia Nam CNP [Primary Care Provider] - 05/29/19 1:00 pm () - Diet and Activity Activity: resume usual activities as tolerated Diet: low salt diet
--- NOTE | 2019-05-22 15:58 | Electrocardiograph Report ---
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
== END 2019-05-22 12:43 | disposition home or self-care (01) ==
LOC: 3BNU 09:54 → EMEROOARM 09:54 → 3BNU 14:57
PROVIDERS: ADMIT Internal Medicine Nephrology; ATTEND Internal Medicine Nephrology

== ENCOUNTER 2020-08-18 15:20 | Observation (INO) ==
[2020-08-18] MEDS ORDERED: *HR* FentaNYL (PF) 100 MCG/2 ML VIAL IVP ONE (16:51)
[2020-08-18 16:58] LABS: Basophils # 0.1 K/mcL (0.0-0.2); Basophils % 0.8 %; Eosinophils # 0.2 K/mcL (0.0-0.6); Eosinophils % 2.3 %; Hemoglobin 14.2 g/dL (11.5-15.4); Immature Granulocytes % 0.2 % (0-4); Lymphocytes # 1.9 K/mcL (0.6-4.6); Lymphocytes % 21.6 %; Mean Corpuscular HGB Conc 32.3 g/dL (31.6-35.5); Mean Corpuscular Hemoglobin 30.5 pg (28.0-33.3); Mean Corpuscular Volume 94.6 fL (83.0-100.0); Mean Platelet Volume 10.8 fL (9.4-12.4); Monocytes # 0.9 K/mcL (0.0-1.3); Monocytes % 10.6 %; Neutrophils # 5.7 K/mcL (1.6-8.9); Platelet Count 245 K/mcL (140-400); Red Blood Count 4.65 M/mcL (3.82-4.97); Red Cell Distribution Width 12.8 % (11.5-14.5); Segmented Neutrophils % 64.5 %; White Blood Count 8.8 K/mcL (4.3-11.1)
[2020-08-18] MEDS ORDERED: Aspirin 325 MG TABLET PO ONE (17:01)
[2020-08-18 17:16] LABS: BUN/Creatinine Ratio 14 (6-26); Blood Urea Nitrogen 13 mg/dL (6-20); Carbon Dioxide 25 mEq/L (23-29); Chloride 107 mEq/L (98-107); Glucose 85 mg/dL (70-105); Osmolality,Calculated 289 (280-300); Potassium 3.5 mEq/L (3.5-5.1); Sodium 140 mEq/L (136-145); eGFR For African Americans > 60 (> 60); eGFR For Non-African Americans > 60 (> 60)
[2020-08-18 17:17] LABS: Troponin I < 0.03 ng/mL (< 0.04)
[2020-08-18] MEDS ORDERED: Isovue-370 500 ML BOTTLE IVP ONE (17:44)
[2020-08-18] MEDS ORDERED: Acetaminophen 325 MG TABLET PO PRN (19:41)
[2020-08-18] MEDS ORDERED: Naloxone 0.4 MG/ML INJ IVP PRN (19:41)
[2020-08-18] MEDS ORDERED: Ondansetron 4 MG/2 ML VIAL IVP PRN (19:41)
[2020-08-18] MEDS ORDERED: SUMAtriptan succinate 25 MG TABLET PO ONE (19:43)
[2020-08-18] MEDS ORDERED: Nitroglycerin 0.4 MG TAB.SUBL SL PRN (20:49)
[2020-08-18] MEDS: Fluticasone Propionate Nasal 50 MCG/SPRAY BOTTLE NS SCH (21:09)
[2020-08-18] MEDS: *HR* Heparin 5,000 UNIT/ML VIAL SQ SCH (21:09)
[2020-08-19 01:07] LABS: Hematocrit 40.3 % (35.3-44.9); Hemoglobin 13.1 g/dL (11.5-15.4); Mean Corpuscular HGB Conc 32.5 g/dL (31.6-35.5); Mean Corpuscular Hemoglobin 30.7 pg (28.0-33.3); Mean Corpuscular Volume 94.4 fL (83.0-100.0); Mean Platelet Volume 10.9 fL (9.4-12.4); Platelet Count 218 K/mcL (140-400); Red Blood Count 4.27 M/mcL (3.82-4.97); Red Cell Distribution Width 12.8 % (11.5-14.5)
[2020-08-19 01:22] LABS: BUN/Creatinine Ratio 25 (6-26); Blood Urea Nitrogen 15 mg/dL (6-20); Calcium 8.3 mg/dL (8.6-10.3); Carbon Dioxide 21 mEq/L (23-29); Chloride 108 mEq/L (98-107); Chol/HDL Ratio 5.5 (0-4.9); Cholesterol 187 mg/dL (< 200); Glucose 93 mg/dL (70-105); HDL Cholesterol 34 mg/dL (40-59); LDL Cholesterol,Calculated 115 mg/dL (< 100); Osmolality,Calculated 285 (280-300); Potassium 3.5 mEq/L (3.5-5.1); Sodium 137 mEq/L (136-145); Triglycerides 191 mg/dL (< 150); eGFR For African Americans > 60 (> 60); eGFR For Non-African Americans > 60 (> 60)
[2020-08-19] MEDS: *HR* Heparin 5,000 UNIT/ML VIAL SQ SCH (04:45)
[2020-08-19] MEDS ORDERED: Regadenoson 0.4 MG/5 ML SYRINGE IVP ONE (06:34)
[2020-08-19] MEDS ORDERED: Aspirin Enteric Coated 81 MG Tablet PO SCH (09:00)
[2020-08-19] MEDS ORDERED: Metoclopramide 10 MG/2 ML VIAL IVP ONE (09:26)
[2020-08-19] MEDS ORDERED: SUMAtriptan 6 MG/0.5 ML SQ ONE (09:26)
[2020-08-19] MEDS: Fluticasone Propionate Nasal 50 MCG/SPRAY BOTTLE NS SCH (10:05)
[2020-08-19 11:07] VITALS: BP 125/77
[2020-08-19] MEDS ORDERED: estradioL 0.5 MG TABLET PO SCH (12:00)
[2020-08-19 16:03] LABS: Estimated Average Glucose 123 mg/dl
[2020-08-19] MEDS ORDERED: ARIPiprazole 2 MG TABLET PO SCH (21:00)
[2020-08-19] MEDS ORDERED: Topiramate 25 MG TABLET PO SCH (21:00)
== END 2020-08-19 16:34 | disposition home or self-care (01) ==
LOC: 3BNU 15:20 → EMEROOARM 15:20 → 3BNU 19:57
PROVIDERS: ADMIT Student in an Organized Health Care Education/Training Program; ATTEND Student in an Organized Health Care Education/Training Program